=== PATIENT | female | born 1950 | race Caucasian/White ===

== ENCOUNTER 2021-05-08 10:06 | Day surgery (SDC) | payer OTHER ==
[~2021-05-08 10:06] MED LIST: AMLO5 PO; ASPI81CH PO; ERGO400 PO; GLIM4 PO; GLIP5ER PO; LOSA50 PO; LOSHYD100 PO; LOVA40 PO; METF500 PO; OMEP20ER PO; VITAMIN B-1250 MCG PO
== END 2021-05-08 23:08 | disposition home or self-care (01) ==
LOC: MOI US 10:06
PROC: 0HHT3YZ Insertion of Other Device into Right Breast, Percutaneous Approach (ICD-10-PCS; principal; 2021-05-08)
DX: D05.11 Intraductal carcinoma in situ of right breast (principal)
CPT/HCPCS: 19285; 77065; A4648; G0279

== ENCOUNTER 2021-05-12 05:51 | Day surgery (SDC) | payer OTHER ==
[~2021-05-12] VITALS: Ht 160 cm; Wt 82.7 kg
--- NOTE | 2021-05-12 06:50 | NUR ---
PT AMBULATES TO [facility] c STEADY GAIT. + VOID. History, Chart, Medications and Allergies reviewed before start of procedure. Lungs clear T/O to Auscultation. Patient confirms NPO status and agrees with scheduled surgery. Patient States Post-Procedure ride home has been arranged, NUMBER ON CHART. Patient reports completing Chlorhexadine shower X2 prior to admission to hospital. CHEM BG 117.
--- NOTE | 2021-05-12 10:14 | NUR ---
Patient up to Ambulate independently. Gait steady. Discharge instructions reviewed with patient. Patient verbalizes understanding. Copy given to patient to take home. Dressing to procedure site clean, dry, intact with no visible drainage, swelling, erythema or bruising noted. Patient States Post-Procedure ride home has been arranged. Discharged via wheelchair to private car for ride home. ALL BELONINGS RETURNED TO PATIENT.
== END 2021-05-12 10:15 | disposition home or self-care (01) ==
LOC: ORSCMMR 05:51 → ORD 07:30 → ORSCMMR 07:30
PROVIDERS: Surgery
PROC: 0HBT0ZZ Excision of Right Breast, Open Approach (ICD-10-PCS; principal; 2021-05-12 07:30)
DX: D05.11 Intraductal carcinoma in situ of right breast (principal); Z17.0 Estrogen receptor positive status [ER+]; I10 Essential (primary) hypertension; E11.9 Type 2 diabetes mellitus without complications; E78.5 Hyperlipidemia, unspecified; K21.9 Gastro-esophageal reflux disease without esophagitis; Z87.891 Personal history of nicotine dependence; J45.909 Unspecified asthma, uncomplicated; Z79.84 Long term (current) use of oral hypoglycemic drugs; Z79.82 Long term (current) use of aspirin; Z79.899 Other long term (current) drug therapy
CPT/HCPCS: 76098; 82947; A9270; J0690; J1100; J2250; J2370; J2405; J2704; J3010; J7120

== ENCOUNTER 2021-11-27 13:25 | Day surgery (SDC) | payer OTHER ==
[~2021-11-27] VITALS: Ht 160 cm; Wt 85.8 kg
--- NOTE | 2021-11-27 16:03 | NUR ---
11/27/21 1603 Edita Sellers BALLOON DILATION DONE WITH 12,13.5,15,18,20. SEE ENDOSCOPY PAGE, JUDAH ALSO USED.
== END 2021-11-27 16:38 | disposition home or self-care (01) ==
LOC: ORSCSDS 13:25
PROVIDERS: Internal Medicine Gastroenterology
PROC: 0D758ZZ Dilation of Esophagus, Via Natural or Artificial Opening Endoscopic (ICD-10-PCS; principal; 2021-11-27 14:45)
PROC: 0DB58ZX Excision of Esophagus, Via Natural or Artificial Opening Endoscopic, Diagnostic (ICD-10-PCS; principal; 2021-11-27 14:45)
PROC: 0DB78ZX Excision of Stomach, Pylorus, Via Natural or Artificial Opening Endoscopic, Diagnostic (ICD-10-PCS; principal; 2021-11-27 14:45)
DX: R13.10 Dysphagia, unspecified (principal); K31.7 Polyp of stomach and duodenum; K21.9 Gastro-esophageal reflux disease without esophagitis; K44.9 Diaphragmatic hernia without obstruction or gangrene; I10 Essential (primary) hypertension; E11.9 Type 2 diabetes mellitus without complications; Z85.3 Personal history of malignant neoplasm of breast; Z79.84 Long term (current) use of oral hypoglycemic drugs; Z79.899 Other long term (current) drug therapy; Z79.82 Long term (current) use of aspirin
CPT/HCPCS: 82947; 88305; C1726; J0330; J0461; J2250; J2405; J2704; J7120

== ENCOUNTER 2022-11-19 09:54 | Day surgery (SDC) | payer OTHER ==
[~2022-11-19] VITALS: Ht 160 cm; Wt 89.5 kg
[2022-11-19] MEDS ORDERED: METO100ER (10:10)
[2022-11-19] MEDS ORDERED: CALCIUM CIT 311 EAC7 (10:11)
== END 2022-11-19 12:08 | disposition home or self-care (01) ==
LOC: ORSCSDS 09:54
PROVIDERS: Internal Medicine Gastroenterology
PROC: 0DB68ZX Excision of Stomach, Via Natural or Artificial Opening Endoscopic, Diagnostic (ICD-10-PCS; principal; 2022-11-19 11:15)
PROC: 0DB98ZX Excision of Duodenum, Via Natural or Artificial Opening Endoscopic, Diagnostic (ICD-10-PCS; principal; 2022-11-19 11:15)
DX: R13.10 Dysphagia, unspecified (principal); K31.7 Polyp of stomach and duodenum; D50.9 Iron deficiency anemia, unspecified; K44.9 Diaphragmatic hernia without obstruction or gangrene; Z87.11 Personal history of peptic ulcer disease; E11.9 Type 2 diabetes mellitus without complications; E78.5 Hyperlipidemia, unspecified; K21.9 Gastro-esophageal reflux disease without esophagitis; G47.33 Obstructive sleep apnea (adult) (pediatric); Z87.891 Personal history of nicotine dependence; Z79.84 Long term (current) use of oral hypoglycemic drugs; Z79.82 Long term (current) use of aspirin; Z79.899 Other long term (current) drug therapy
CPT/HCPCS: 82947; 88305; 88342; J2001; J2250; J2704; J7120

== ENCOUNTER 2023-09-09 08:16 | Day surgery (SDC) | payer OTHER ==
[~2023-09-09] VITALS: Ht 160 cm; Wt 87.6 kg
[~2023-09-09 08:16] MED LIST changes: +ANASTROZOLE1 M7 PO; +CALCIUM CIT 311 EAC7; +GLIP10 PO; +LETR2.5 PO; +METO100ER PO; +PRAV20 PO
[2023-09-09 08:53] VITALS: BP 168/67
--- NOTE | 2023-09-09 09:05 | NUR ---
History, Chart, Medications and Allergies reviewed before start of procedure. Lungs clear T/O to Auscultation. Patient confirms NPO status and agrees with scheduled surgery. Pre-Op teaching done. Pt verbalizes understanding.
--- NOTE | 2023-09-09 09:49 | NUR ---
09/09/23 0949 Drake Weems History, Chart, Medications and Allergies reviewed before start of procedure. MONITOR INTACT WITH CONTINUOUS PULSE OXIMETRY, CONTINUOUS END TITAL CO2, AND INTERMITTENT BLOOD PRESSURE. 3-LEAD EKG REVIEWED WITH PHYSICIAN PRIOR TO START OF PROCEDURE. O2 VIA N/C INTACT THROUGHOUT SEDATION/PROCEDURE.
[2023-09-09 10:21] VITALS: BP 94/78
[2023-09-09 10:22] VITALS: BP 136/87
[2023-09-09 10:45] VITALS: BP 159/83
--- NOTE | 2023-09-09 11:11 | NUR ---
Patient up to Ambulate independently. Gait steady. Discharge instructions reviewed with patient. Patient verbalizes understanding. Copy given to patient to take home. Patient States Post-Procedure ride home has been arranged. Discharged via wheelchair to private car for ride home. ALL BELONGINGS RETURNED TO PATIENT.
== END 2023-09-09 22:51 | disposition home or self-care (01) ==
LOC: ORSCMMR 08:16 → ORD 09:30 → ORSCMMR 22:51
PROVIDERS: Internal Medicine Gastroenterology
PROC: 0DBN8ZX Excision of Sigmoid Colon, Via Natural or Artificial Opening Endoscopic, Diagnostic (ICD-10-PCS; principal; 2023-09-09 09:30)
PROC: 0DBH8ZX Excision of Cecum, Via Natural or Artificial Opening Endoscopic, Diagnostic (ICD-10-PCS; principal; 2023-09-09 09:30)
DX: D50.9 Iron deficiency anemia, unspecified (principal); D12.0 Benign neoplasm of cecum; K63.5 Polyp of colon; K57.30 Diverticulosis of large intestine without perforation or abscess without bleeding; E11.9 Type 2 diabetes mellitus without complications; G47.33 Obstructive sleep apnea (adult) (pediatric); K21.9 Gastro-esophageal reflux disease without esophagitis; I10 Essential (primary) hypertension; K64.4 Residual hemorrhoidal skin tags; Z87.891 Personal history of nicotine dependence; Z79.84 Long term (current) use of oral hypoglycemic drugs; Z79.82 Long term (current) use of aspirin; Z79.899 Other long term (current) drug therapy
CPT/HCPCS: 82947; 88305; J2704; J7120

== ENCOUNTER 2024-05-24 07:32 | Day surgery (SDC) | payer OTHER ==
[~2024-05-24] VITALS: Ht 160 cm; Wt 89.9 kg
[~2024-05-24 07:32] MED LIST changes: +ASCO500 PO; +Amlodipine Bes2.5 MG PO; +B-12500 MC2 PO; +Balanced Salt Epinephrine Irrigation Solution 500 mL IR SCH; +IRON; +Lidocaine HCl/Pf 1% 5 ML VIAL ONE; +Lidocaine HCl/Pf 1% 5 ML VIAL XX SCH; +Moxifloxacin HCL 0.5 MG/0.1 ML 0.4MLSYR RIGHTEYE SCH; +NS 500 ML IV ONE; +PHENYLEPHRINE\\TROPICAMIDE\\TETRACAINE OPHTHALMIC DILATING SOLN RIGHTEYE PRN; +Povidone-Iodine 450 DROP/30 ML Solution ONE; +Povidone-Iodine 450 DROP/30 ML Solution RIGHTEYE SCH; +Tetracaine HCl/Pf 0.5% Opth Soln 4 ml ONE; +Triamcinolone Inj Susp 40 MG / ML 1ML Vial INJ SCH; +Triamcinolone Inj Susp 40 MG / ML 1ML Vial ONE; +VITAMIN D; +VITAMIN D31000 UNI1 PO
[2024-05-24] MEDS ORDERED: VITAMIN D350 MC3 PO (08:13)
[2024-05-24] MEDS ORDERED: Glucotrol Xl10 MG PO (08:14)
[2024-05-24] MEDS ORDERED: CALCIUM CITRAT250 MG PO (08:15)
[2024-05-24] MEDS ORDERED: Lactated Ringer's 1,000 ML IV ONE (08:25)
[2024-05-24] MEDS ORDERED: Midazolam HCl 1MG / ML 2ML Vial ONE (08:42)
[2024-05-24] MEDS ORDERED: Tetracaine HCl 0.5% Opth Soln 15 ml RIGHTEYE ONE (08:48)
[2024-05-24 09:26] VITALS: BP 173/71
== END 2024-05-24 09:29 | disposition home or self-care (01) ==
LOC: ORSCSDS 07:32
PROVIDERS: Ophthalmology
PROC: 08RJ3JZ Replacement of Right Lens with Synthetic Substitute, Percutaneous Approach (ICD-10-PCS; principal; 2024-05-24 09:00)
DX: E11.36 Type 2 diabetes mellitus with diabetic cataract (principal); H25.11 Age-related nuclear cataract, right eye; G47.33 Obstructive sleep apnea (adult) (pediatric); K21.9 Gastro-esophageal reflux disease without esophagitis; I10 Essential (primary) hypertension; E66.01 Morbid (severe) obesity due to excess calories; Z68.35 Body mass index [BMI] 35.0-35.9, adult; Z79.84 Long term (current) use of oral hypoglycemic drugs; Z79.899 Other long term (current) drug therapy
CPT/HCPCS: 82947; J2001; J2250; J3301; J7040; V2632